=== PATIENT | female | born 1970 | race Caucasian/White ===

== ENCOUNTER 2016-10-23 08:36 | Emergency (ER) | payer MEDICAID ==
[2016-04-11 15:30] VITALS: BMI 34.5
[~2016-10-23 08:36] MED LIST: BUTALB-APAP-CA1 EACH PO; BYSTOLIC5 MG PO; CELEXA20 MG PO; OMEPRAZOLE40 MG PO; SYNTHROID50 MCG PO; XANAX0.5 MG PO; ZOCOR20 MG PO; ZYRTEC10 MG PO
[2016-10-23 09:47] LABS: BASOPHILS 0.2 % (0.0-2.0); EOSINOPHILS 1.7 % (0-7); HEMATOCRIT 40.3 % (36.0-48.0); HEMOGLOBIN 13.5 g/dL (12-16); IMMATURE GRANULOCYTES 0.2 % (0-5); LYMPHOCYTES 29.3 % (15-50); MCH 29.1 pg (26.0-34.0); MCHC 33.5 g/dL (31.0-37.0); MCV 86.9 fL (80.0-100.0); MEAN PLATELET VOLUME 9.1 fL (7.4-10.4); MONOCYTES 11.8 % (2-11); NEUTROPHILS 56.8 % (40-80); PLATELET COUNT 136 10x3/uL (130-400); RBC 4.64 10x6/uL (4.00-5.40); RDW 12.9 % (11.5-14.5); WBC 4.2 10x3/uL (4.8-10.8)
[2016-10-23 10:01] LABS: APPEARANCE CLEAR (CLEAR); COLOR STRAW (YELLOW); LEUKOCYTE ESTERASE NEGATIVE (NEGATIVE); NITRITE NEGATIVE (NEGATIVE); PH 7.5 (5.0-6.0); PROTEIN NEGATIVE (NEGATIVE); SPECIFIC GRAVITY 1.005 (1.005-1.020)
[2016-10-23 10:02] LABS: BILIRUBIN NEGATIVE (NEGATIVE); GLUCOSE NEGATIVE (NEGATIVE); KETONE NEGATIVE (NEGATIVE); UROBILINOGEN NORMAL (NORMAL)
[2016-10-23 10:13] LABS: ALBUMIN 3.7 g/dL (3.4-5.0); ANION GAP 9.1 mmol/L (8-16); BILIRUBIN - TOTAL 1.56 mg/dL (0.2-1.3); CALCIUM 9.1 mg/dL (8.5-10.1); CARBON DIOXIDE 31.9 mmol/L (21.0-32.0); PROTEIN - SERUM 7.3 g/dL (6.4-8.2)
== END 2016-10-23 13:06 | disposition home or self-care (01) ==
LOC: D.ER 08:36
PROVIDERS: Emergency Medicine
DX: K57.92 Diverticulitis of intestine, part unspecified, without perforation or abscess without bleeding (principal); N20.1 Calculus of ureter; E03.9 Hypothyroidism, unspecified; M79.7 Fibromyalgia; F32.9 Major depressive disorder, single episode, unspecified

== ENCOUNTER → 2016-12-16 08:17 | Outpatient (CLI) | payer MEDICAID ==
[2016-04-11 15:30] VITALS: BMI 34.5
== END | disposition home or self-care (01) ==
LOC: D.MRI 12-04 11:00
DX: M24.271 Disorder of ligament, right ankle (principal)

== ENCOUNTER → 2017-01-14 11:20 | Outpatient (CLI) | payer MEDICAID ==
[2016-04-11 15:30] VITALS: BMI 34.5
[2017-01-14 12:43] LABS: ERYTHROCYTE SEDIMENTATION RATE 8 mm/hr (0-20)
[2017-01-15 10:21] LABS: ANA REFLEX - DIRECT Negative (Negative)
== END | disposition home or self-care (01) ==
LOC: D.LAB 11:15
PROVIDERS: Family Medicine
DX: M25.40 Effusion, unspecified joint (principal); M79.7 Fibromyalgia; M25.50 Pain in unspecified joint

== ENCOUNTER 2017-04-08 13:13 | Outpatient (CLI) | payer MEDICAID ==
[2016-04-11 15:30] VITALS: BMI 34.5
== END 2017-04-08 13:23 ==
LOC: D.MAMMO 13:13
DX: Z12.31 Encounter for screening mammogram for malignant neoplasm of breast (principal)

== ENCOUNTER 2017-04-22 16:25 | Emergency (ER) | payer MEDICAID ==
[2016-04-11 15:30] VITALS: BMI 34.5
[2017-04-22 17:21] LABS: BASOPHILS 0.3 % (0-2); EOSINOPHILS 1.7 % (0-7); HEMATOCRIT 37.9 % (36.0-48.0); HEMOGLOBIN 13.3 g/dL (12-16); LYMPHOCYTES 36.1 % (15-50); MCH 30.4 pg (26.0-34.0); MCHC 35.1 g/dL (31.0-37.0); MCV 86.5 fL (80.0-100.0); MEAN PLATELET VOLUME 9.2 fL (7.4-10.4); MONOCYTES 12.3 % (2-11); NEUTROPHILS 49.6 % (40-80); PLATELET COUNT 154 10x3/uL (130-400); RBC 4.38 10x6/uL (4.00-5.40); RDW 13.2 % (11.5-14.5); WBC 3.6 10x3/uL (4.8-10.8)
[2017-04-22 17:59] LABS: ALBUMIN 3.9 g/dL (3.4-5.0); ANION GAP 13.1 mmol/L (8-16); BILIRUBIN - TOTAL 0.9 mg/dL (0.2-1.3); CARBON DIOXIDE 28.9 mmol/L (21.0-32.0); CREATININE - SERUM 0.9 mg/dL (0.6-1.3); PROTEIN - SERUM 7.6 g/dL (6.4-8.2)
[2017-04-22 20:44] LABS: APPEARANCE CLEAR (CLEAR); BILIRUBIN NEGATIVE (NEGATIVE); COLOR YELLOW (YELLOW); GLUCOSE NEGATIVE (NEGATIVE); KETONE NEGATIVE (NEGATIVE); LEUKOCYTE ESTERASE NEGATIVE (NEGATIVE); NITRITE NEGATIVE (NEGATIVE); PROTEIN NEGATIVE (NEGATIVE); UROBILINOGEN NORMAL (NORMAL)
== END 2017-04-22 21:19 | disposition home or self-care (01) ==
LOC: D.ER 16:25
PROVIDERS: Family Medicine
DX: R10.32 Left lower quadrant pain (principal)

== ENCOUNTER → 2019-02-25 11:00 | Outpatient (CLI) | payer MEDICARE ==
[2016-04-11 15:30] VITALS: BMI 34.5
== END | disposition home or self-care (01) ==
LOC: D.MAMMO 11:00
PROVIDERS: ATTEND Family Medicine
DX: Z12.31 Encounter for screening mammogram for malignant neoplasm of breast (principal)

== ENCOUNTER 2021-01-18 11:45 | Outpatient (CLI) | payer MEDICARE ==
[2016-04-11 15:30] VITALS: BMI 34.5
== END 2021-01-18 12:15 | disposition home or self-care (01) ==
LOC: D.MAMMO 11:45
PROVIDERS: ATTEND Family Medicine
DX: Z12.31 Encounter for screening mammogram for malignant neoplasm of breast (principal)